=== PATIENT | male | born 1975 | race African-American/Black ===

== ENCOUNTER 2021-11-28 13:47 | Emergency (ER) | payer OTHER, SELFPAY ==
--- NOTE | 2021-11-28 14:08 | ED_ITS ---
HPI - Psych General Chief Complaint: Psychiatric Symptoms <Denise Buck NP - Last Filed: 11/28/21 20:24> Stated Complaint: SI/HI, NOT SAFE, NOT TAKING MEDS <Denise Buck NP - Last Filed: 11/28/21 20:24> Time Seen by Provider: 11/28/21 13:56 <Denise Buck NP - Last Filed: 11/28/21 20:24> Source: patient and EMS <Denise Buck NP - Last Filed: 11/28/21 20:24> Mode of arrival: EMS <Denise Buck NP - Last Filed: 11/28/21 20:24> Limitations: no limitations <JOVANNY Rahman Last Filed: 11/28/21 20:24> History of Present Illness HPI Narrative: 46 yo male with history of schizoaffective disorder, depression here with complaints of feeling suicidal with plan to run into traffic since September. No HI, hallucinations. Smoked some crack and drank alcohol on Monday but tells me he only does this intermittently. He tells me he was [place] [facility] [place] with ?h.pylori and is on amoxicillin and clarithromycin which he tells me he has been compliant with this and prn oxycodone. While he was in [facility] [place] tells me they discontinued his depakote and increased his seroquel which he feels is making things worse. <Denise Buck NP - Last Filed: 11/28/21 20:24> Related Data Allergies/Adverse Reactions: Allergies Allergy/AdvReac Type Severity Reaction Status Date / Time aspirin Allergy Unknown Verified 11/28/21 14:08 hydromorphone [From Dilaudid] Allergy Hives Verified 11/28/21 14:08 morphine Allergy Hives Verified 11/28/21 14:08 tramadol Allergy Unknown Verified 11/28/21 14:09 <Denise Buck NP - Last Filed: 11/28/21 20:24> Review of Systems Review of Systems: Yes all other systems are reviewed and are negative <JOVANNY Rahman Last Filed: 11/28/21 20:24> Constitutional: Constitutional: Reports no additional constitutional complaints, Denies body ache(s), Denies chills, Denies fever(s), Denies headache(s) and Denies weakness <Denise Buck NP - Last Filed: 11/28/21 20:24> Eyes: Eyes: Reports no additional eye complaints and Denies change in vision <Denise Buck NP - Last Filed: 11/28/21 20:24> ENT: Reports system reviewed and no additional complaints, except as documented, Denies dizziness, Denies headache(s), Denies nasal congestion, Denies nasal discharge and Denies neck pain <Denise Buck NP - Last Filed: 11/28/21 20:24> Cardiovascular: Cardiovascular: Reports no additional cardiovascular complaints, Denies chest pain, Denies leg edema and Denies dyspnea <Denise Buck NP - Last Filed: 11/28/21 20:24> Respiratory: Respiratory: Reports no additional respiratory complaints, Denies cough and Denies dyspnea <Denise Buck NP - Last Filed: 11/28/21 20:24> Gastrointestinal: Gastrointestinal: Reports no additional gastrointestinal complaints, Denies abdominal pain, Denies diarrhea, Denies nausea and Denies vomiting <Denise Buck NP - Last Filed: 11/28/21 20:24> Genitourinary: Genitourinary: Denies urinary incontinence <Denise Buck NP - Last Filed: 11/28/21 20:24> Musculoskeletal: Musculoskeletal: Reports no additional musculoskeletal complaints, Denies back pain, Denies arthralgias, Denies joint swelling, Denies neck pain, Denies numbness and Denies tingling <Denise Buck NP - Last Filed: 11/28/21 20:24> Integumentary/Breasts: Skin/Breast: Reports system reviewed and no additional complaints, except as docu and Denies rash <Denise Buck NP - Last Filed: 11/28/21 20:24> Neurologic: Reports system reviewed and no additional complaints, except as documented, Denies Abnormal speech present, Denies dizziness, Denies headache(s), Denies numbness, Denies tingling and Denies weakness <Denise Buck NP - Last Filed: 11/28/21 20:24> Psychiatric: Psychiatric: Denies homicidal ideation and Reports suicidal ideation <Denise Buck NP - Last Filed: 11/28/21 20:24> [facility] Past Medical History Attestation statement: The following information was validated with the patient. <Denise Buck NP - Last Filed: 11/28/21 20:24> Source: old records reviewed and nursing notes reviewed <Denise Buck NP - Last Filed: 11/28/21 20:24> Medical History: Medical History Depression GERD (gastroesophageal reflux disease) <Denise Buck NP - Last Filed: 11/28/21 20:24> Social History Social History: Social History Substance Use Type: Crack/Cocaine Advance Directives: No Advance Directives Information Provided: No <Denise Buck NP - Last Filed: 11/28/21 20:24> Physical Exam Vital Signs: Vital Signs: Last Vital Signs Temp 98.2 F 11/28/21 14:14 Pulse 86 11/28/21 14:14 Resp 18 11/28/21 14:14 BP 109/67 11/28/21 14:14 Pulse Ox 97 11/28/21 14:14 BMI result Body Mass Index 23.7 <Denise Buck NP - Last Filed: 11/28/21 20:24> Const: General: cooperative, healthy appearing, comfortable and no acute distress <Denise Buck NP - Last Filed: 11/28/21 20:24> Orientation/consciousness: patient oriented x3 <Denise Buck NP - Last Filed: 11/28/21 20:24> Limitations: no limitations <Denise Buck NP - Last Filed: 11/28/21 20:24> HEENT: Head: Yes normal to inspection <Denise Buck NP - Last Filed: 11/28/21 20:24> Ears: hearing grossly normal bilaterally <Denise Buck NP - Last Filed: 11/28/21 20:24> General nose exam: Normal external nose present <Denise Buck NP - Last Filed: 11/28/21 20:24> Face and sinus: Yes normal facial exam <Denise Buck NP - Last Filed: 11/28/21 20:24> Mouth: Normal oral and palatal mucosa present <Denise Buck NP - Last Filed: 11/28/21 20:24> Throat: Yes posterior oropharynx normal <Denise Buck NP - Last Filed: 11/28/21 20:24> Eyes: General: appearance normal, both eyes and all related structures <Denise Buck NP - Last Filed: 11/28/21 20:24> Pupils: Equal, round and reactive pupils present <Denise Buck NP - Last Filed: 11/28/21 20:24> Neck: Neck: Yes normal visual inspection and Yes full ROM <Denise Buck NP - Last Filed: 11/28/21 20:24> Chest: Chest palpation & inspection: normal inspection of the chest <Denise Buck NP - Last Filed: 11/28/21 20:24> Resp: Effort & Inspection: normal respiratory effort <Denise Buck NP - Last Filed: 11/28/21 20:24> Auscultation: clear to auscultation bilaterally <Denise Buck NP - Last Filed: 11/28/21 20:24> Cardio: Rate: regular rate <Denise Buck NP - Last Filed: 11/28/21 20:24> Rhythm: regular rhythm <Denise Buck NP - Last Filed: 11/28/21 20:24> Peripheral pulses: Peripheral pulses 2+ throughout <Denise Buck NP - Last Filed: 11/28/21 20:24> GI: Inspection: Yes normal to inspection <Denise Buck NP - Last Filed: 11/28/21 20:24> Palpation (GI): Soft to palpation and nontender <Denise Buck NP - Last Filed: 11/28/21 20:24> Auscultation: normal bowel sounds <Denise Bukc NP - Last Filed: 11/28/21 20:24> Back/Spine/Pelvis: Thoracic/Lumbar Spine: thoracic and lumbar spine normal to inspection <Denise Buck NP - Last Filed: 11/28/21 20:24> Skin: General skin exam: no rashes or lesions noted <Denise Buck NP - Last Filed: 11/28/21 20:24> Neuro: General: patient oriented x3, no focal motor deficits and normal sensation to monofilament <Denise Buck NP - Last Filed: 11/28/21 20:24> Cranial nerves: Yes CN's II-XII intact bilaterally and Yes Equal, round and reactive pupils present <Denise Buck NP - Last Filed: 11/28/21 20:24> Cognition (Neuro): normal cognition <Denise Buck NP - Last Filed: 11/28/21 20:24> Speech: No Abnormal speech present <Denise Buck NP - Last Filed: 11/28/21 20:24> Gait exam (Neuro): Normal gait present <Denise Buck NP - Last Filed: 11/28/21 20:24> Motor exam (neuro): 5/5 motor strength present throughout <Denise Buck NP - Last Filed: 11/28/21 20:24> Extrem: General: Yes normal to inspection <Denise Buck NP - Last Filed: 11/28/21 20:24> Course Course Course Narrative: 46 yo male here with SI, w/ recent med changes. Will check labs, NOVOA, COVID screen. No concern for acute ingestion or trauma. <Denise Buck NP - Last Filed: 11/28/21 20:24> Reevaluation(s) Reevaluation #1: At living room. Seen by N with plan to f/u with outpatient providers. Has appt tomorrow with psychiatrist. <Denise Buck NP - Last Filed: 11/28/21 20:24> Time: 14:25 <Denise Buck NP - Last Filed: 11/28/21 20:24> Reevaluation #2: Patient was seen by crisis. The plan is tomorrow morning he is going [facility] by a 08:00 and will need transportation there. The plan is for him to me his [facility] worker to see a psychiatrist tomorrow. He will be held in the emergency room until then <Denise Buck NP - Last Fi led: 11/28/21 20:24> Time: 20:00 <Denise Buck NP - Last Filed: 11/28/21 20:24> MDM - Psych Medical Records Attestation: I reviewed the patient's medical records. <Denise Buck NP - Last Filed: 11/28/21 20:24> Lab Data Attestation: I reviewed the patient's lab results. <Denise Buck NP - Last Filed: 11/28/21 20:24> Result diagrams: : 11/28/21 14:41 11/28/21 14:41 <Denise Buck NP - Last Filed: 11/28/21 20:24> Labs: Lab Results 11/28/21 11/28/21 11/28/21 Range/Units 14:41 14:41 14:41 WBC 9.0 (4.8-10.8) X10*3/uL RBC 3.85 L (4.60-5.80) X10*6/uL Hgb 12.4 L (14.0-18.0) g/dl Hct 38.2 L (42.0-52.0) % MCV 99.2 H (80.0-98.0) fL MCH 32.2 (27.0-33.0) pg MCHC 32.5 (31.0-36.0) g/dl RDW 15.3 (11.0-16.0) % Plt Count 266 (160-400) X10*3/uL MPV 9.9 (9.4-12.4) fL Immature Gran % (Auto) 0.2 (0.0-0.4) % Neut % (Auto) 57.3 (45-73) % Lymph % (Auto) 28.4 (20-40) % Blair % (Auto) 9.6 (2-11) % Eos % (Auto) 4.2 H (0-4) % Baso % (Auto) 0.3 (0-2) % Lymph # (Auto) 2.6 (1.2-4.9) X10*3/uL Blair # (Auto) 0.9 (0.1-1.2) X10*3/uL Eos # (Auto) 0.4 (0.0-0.4) X10*3/uL Baso # (Auto) 0.0 (0.0-0.2) X10*3/uL Abs Immat Gran (auto) 0.02 (0.00-0.03) X10*3/uL Absolute Neuts (auto) 5.2 (2.0-8.3) x10*3/uL Absolute Nucleated RBC 0.000 (0.0-0.012) X10*3/uL Nucleated RBC % (auto) 0.0 (0.0-0.2) /100WBC Sodium 139 (135-145) mmol/L Potassium 4.8 (3.3-5.1) mmol/L Chloride 109 H (96-108) mmol/L Carbon Dioxide 21 L (22-29) mmol/L Anion Gap 14 (12-20) BUN 16 (9-16) mg/dL Creatinine 0.71 (0.5-1.4) mg/dL Estim Creat Clear Calc 134.2 Estimated GFR > 60 Random Glucose 78 (60-115) mg/dL Calcium 9.2 (8.4-10.2) mg/dL Total Bilirubin 0.2 (0.0-1.0) mg/dL Direct Bilirubin < 0.2 (0.0-0.5) mg/dL AST 62 H (5-37) U/L ALT 111 H (0-40) U/L Alkaline Phosphatase 68 (39-117) U/L Total Protein 7.5 (6.5-8.0) g/dL Albumin 4.1 (3.5-5.0) g/dL Urine Opiates Screen (Not Detect) Urine Fentanyl Screen (Not Detect) Ur Barbiturates Screen (Not Detect) Ur Phencyclidine Scrn (Not Detect) Ur Amphetamines Screen (Not Detect) U Benzodiazepines Scrn (Not Detect) Urine Cocaine Screen (Not Detect) U Marijuana (THC) Screen (Not Detect) Ethyl Alcohol mg/dL COVID-19 ([facility]) Negative (Negative) COVID-19 Clin Com See Note 11/28/21 11/28/21 Range/Units 14:41 14:43 WBC (4.8-10.8) X10*3/uL RBC (4.60-5.80) X10*6/uL Hgb (14.0-18.0) g/dl Hct (42.0-52.0) % MCV (80.0-98.0) fL MCH (27.0-33.0) pg MCHC (31.0-36.0) g/dl RDW (11.0-16.0) % Plt Count (160-400) X10*3/uL MPV (9.4-12.4) fL Immature Gran % (Auto) (0.0-0.4) % Neut % (Auto) (45-73) % Lymph % (Auto) (20-40) % Blair % (Auto) (2-11) % Eos % (Auto) (0-4) % Baso % (Auto) (0-2) % Lymph # (Auto) (1.2-4.9) X10*3/uL Blair # (Auto) (0.1-1.2) X10*3/uL Eos # (Auto) (0.0-0.4) X10*3/uL Baso # (Auto) (0.0-0.2) X10*3/uL Abs Immat Gran (auto) (0.00-0.03) X10*3/uL Absolute Neuts (auto) (2.0-8.3) x10*3/uL Absolute Nucleated RBC (0.0-0.012) X10*3/uL Nucleated RBC % (auto) (0.0-0.2) /100WBC Sodium (135-145) mmol/L Potassium (3.3-5.1) mmol/L Chloride (96-108) mmol/L Carbon Dioxide (22-29) mmol/L Anion Gap (12-20) BUN (9-16) mg/dL Creatinine (0.5-1.4) mg/dL Estim Creat Clear Calc Estimated GFR Random Glucose (60-115) mg/dL Calcium (8.4-10.2) mg/dL Total Bilirubin (0.0-1.0) mg/dL Direct Bilirubin (0.0-0.5) mg/dL AST (5-37) U/L ALT (0-40) U/L Alkaline Phosphatase (39-117) U/L Total Protein (6.5-8.0) g/dL Albumin (3.5-5.0) g/dL Urine Opiates Screen Not Detected (Not Detect) Urine Fentanyl Screen POSITIVE H (Not Detect) Ur Barbiturates Screen Not Detected (Not Detect) Ur Phencyclidine Scrn Not Detected (Not Detect) Ur Amphetamines Screen Not Detected (Not Detect) U Benzodiazepines Scrn Not Detected (Not Detect) Urine Cocaine Screen POSITIVE H (Not Detect) U Marijuana (THC) Screen Not Detected (Not Detect) Ethyl Alcohol 41 mg/dL COVID-19 ([facility]) (Negative) COVID-19 Clin Com <Denise Buck NP - Last Filed: 11/28/21 20:24> Discharge Plan Discharge Clinical Impression: Schizoaffective disorder <Denise Buck NP - Last Filed: 11/28/21 20:24> Patient Disposition: Still a Patient <Denise Buck NP - Last Filed: 11/28/21 20:24>
[2021-11-28 14:14] VITALS: BP 109/67; BP 130/80; PULSE 86; RESP 18; TEMP 36.8; O2SAT 96; O2SAT 97; BMI 23.7
[2021-11-28 14:50] LABS: MANUAL DIFF FLAG NO
[2021-11-28 14:51] LABS: Basophils Percent Auto 0.3 % (0-2); Eosinophils Absolute Auto 0.4 X10*3/uL (0.0-0.4); Eosinophils Percent Auto 4.2 % (0-4); Hematocrit 38.2 % (42.0-52.0); Hemoglobin 12.4 g/dl (14.0-18.0); Imm Gran Abs Auto 0.02 X10*3/uL (0.00-0.03); Imm Gran Pct Auto 0.2 % (0.0-0.4); Lymphocytes Absolute Auto 2.6 X10*3/uL (1.2-4.9); Lymphocytes Percent Auto 28.4 % (20-40); Mean Corpuscular HGB Conc 32.5 g/dl (31.0-36.0); Mean Corpuscular Hemoglobin 32.2 pg (27.0-33.0); Mean Corpuscular Volume 99.2 fL (80.0-98.0); Mean Platelet Volume 9.9 fL (9.4-12.4); Monocytes Absolute Auto 0.9 X10*3/uL (0.1-1.2); Monocytes Percent Auto 9.6 % (2-11); Neutrophils Absolute Auto 5.2 x10*3/uL (2.0-8.3); Neutrophils Percent Auto 57.3 % (45-73); Platelet Count 266 X10*3/uL (160-400); Red Blood Count 3.85 X10*6/uL (4.60-5.80); Red Cell Distribution Width 15.3 % (11.0-16.0)
[2021-11-28 15:08] LABS: Ethanol 41 mg/dL
[2021-11-28 15:11] LABS: Amphetamine Screen Urine Not Detected (Not Detect); Barbiturates, Urine Not Detected (Not Detect); Benzodiazepines Screen Urine Not Detected (Not Detect); Cannabinoid Screen Urine Not Detected (Not Detect); Cocaine Screen Urine POSITIVE (Not Detect); Fentanyl, urine POSITIVE (Not Detect); Opiate Screen Urine Not Detected (Not Detect); Phencyclidine Screen Urine Not Detected (Not Detect)
[2021-11-28 15:12] LABS: COVID-19 Test Negative (Negative); IDNOW Serial# 16C4AD1C
[2021-11-28 15:31] LABS: Alanine Aminotransferase 111 U/L (0-40); Albumin Level 4.1 g/dL (3.5-5.0); Alkaline Phosphatase 68 U/L (39-117); Anion Gap 14 (12-20); Aspartate Amino Transferase 62 U/L (5-37); Bilirubin Direct < 0.2 mg/dL (0.0-0.5); Bilirubin Total 0.2 mg/dL (0.0-1.0); Blood Urea Nitrogen 16 mg/dL (9-16); Calcium 9.2 mg/dL (8.4-10.2); Carbon Dioxide 21 mmol/L (22-29); Chloride 109 mmol/L (96-108); Creatinine Clr Calc Pharmacy 134.2; Estimated Glomerular Filt Rate > 60; Glucose Random 78 mg/dL (60-115); Potassium 4.8 mmol/L (3.3-5.1); Sodium 139 mmol/L (135-145); Total Protein 7.5 g/dL (6.5-8.0)
[2021-11-28 21:23] VITALS: BP 125/73; PULSE 89; RESP 18; TEMP 36.8; O2SAT 98
[2021-11-28] MEDS: Omeprazole 20 MG CAPSULE.DR PO (21:50)
[2021-11-28] MEDS: Amoxicillin 500 MG CAPSULE 1000 MG PO (21:50)
[2021-11-28] MEDS: QUEtiapine Fumarate 300 MG TABLET PO (21:50)
[2021-11-28] MEDS: traZODone HCL 100 MG TABLET PO (21:54)
[2021-11-28] MEDS: oxyCODONE HCl Immed Release 5 MG TABLET PO (21:54)
[2021-11-29 02:57] VITALS: BP 122/70; PULSE 91; RESP 16; TEMP 36.8; O2SAT 97
--- NOTE | 2021-11-29 05:41 | PC.NURSE ---
Patient slept through the night, no distress observed/reported, medication compliant, disposition per [facility] is d/c home, psychiatrist appointment at 0800 am in [place], care team to coordinate the ride, behavior non concerning, VSS, will continue to monitor.
--- NOTE | 2021-11-29 06:09 | PC.NURSE ---
patient appears to remain asleep[ at present respirations are even and [id number] patient appears in no distress
[2021-11-29] MEDS: Amoxicillin 500 MG CAPSULE 1000 MG PO (07:13)
[2021-11-29] MEDS: Omeprazole 20 MG CAPSULE.DR PO (07:13)
== END 2021-11-29 08:03 | disposition home or self-care (01) ==
PROVIDERS: Nurse Practitioner Family; Emergency Provider Emergency Medicine
DX: F33.1 Major depressive disorder, recurrent, moderate (principal); R45.851 Suicidal ideations; F14.10 Cocaine abuse, uncomplicated; F25.9 Schizoaffective disorder, unspecified; Z20.822 Contact with and (suspected) exposure to COVID-19; Z79.899 Other long term (current) drug therapy
CPT/HCPCS: 36415; 80048; 80076; 80307; 82077; 85025; 87635; 99284

== ENCOUNTER 2021-12-05 17:34 | Emergency (ER) | payer OTHER, SELFPAY ==
--- NOTE | ~2021-12-05 | XR_ITS ---
EXAMINATION: XR KNEE, LEFT CLINICAL INFORMATION: Left knee pain COMPARISON: None TECHNIQUE: Four views of the left knee. FINDINGS: Bones and soft tissues are normal. No fracture or joint effusion. Alignment is anatomic. Joint spaces are well maintained. No abnormal soft tissue calcification. XR/XR knee LT 4V IMPRESSION: Normal left knee.
[2021-12-05 18:04] VITALS: BP 120/70; BP 131/80; PULSE 70; PULSE 71; RESP 16; TEMP 36.9; O2SAT 96; O2SAT 98; BMI 23.6
--- NOTE | 2021-12-05 18:15 | PC.NURSE ---
SPOKE WITH CHARGE NURSE KYLE ABOUT SECTION 12. PT NOT SI. NO SITTER NEEDED PER CHARGE NURSE.
--- NOTE | 2021-12-05 18:47 | PC.NURSE ---
AMB TO RAD WITH STEADY GAIT.
--- NOTE | 2021-12-05 19:49 | ED_ITS ---
HPI - Extremity Injury (Lower) General Chief Complaint: Extremity Injury, Lower Stated Complaint: left knee pain Time Seen by Provider: 12/05/21 18:36 Source: patient and EMS Mode of arrival: EMS Limitations: no limitations History of Present Illness HPI Narrative: This is a 46-year-old male presenting to the emergency department with atraumatic left knee pain. According to patient he was sitting at [employer] [employer] here he is currently staying eating when he suddenly felt like his left knee started hurting, he tells me he felt like it popped out then popped back into place. He reports numbness from the knee down on the left. And he reports tingling down bilateral legs and up to his head. Patient is laying in a lucy- cross position knee bent. He tells me sometimes when he tries to straighten his leg out his knee automatically bends. He reports pain is worse w/ movement. No evidence signs of trauma or distracting injuries. MD complaint: knee injury Onset (ago): day(s) (1) Place: other Severity: severe Relieving factors: nothing Exacerbating factors: nothing Associated symptoms: snap/pop sensation Other symptoms: none Related Data Home Medications Medication Instructions Recorded Confirmed acetaminophen 325 mg tablet 2 tab PO Q4H PRN 11/28/21 11/28/21 amoxicillin 500 mg capsule 1,000 mg PO BID 11/28/21 11/28/21 clarithromycin 500 mg tablet 500 mg PO BID 11/28/21 11/28/21 oxycodone 5 mg tablet 5 mg PO BID PRN 11/28/21 11/28/21 quetiapine 300 mg tablet 1 tab PO BEDTIME 11/28/21 11/28/21 trazodone 100 mg tablet 1 tab PO BEDTIME PRN 11/28/21 11/28/21 Allergies Allergy/AdvReac Type Severity Reaction Status Date / Time aspirin Allergy Unknown Verified 11/28/21 14:08 hydromorphone [From Dilaudid] Allergy Hives Verified 11/28/21 14:08 morphine Allergy Hives Verified 11/28/21 14:08 tramadol Allergy Unknown Verified 11/28/21 14:09 egg AdvReac Stomach Verified 11/29/21 07:10 Upset Review of Systems Review of Systems: Constitutional : No Weight loss, No Fever, No Chills, No Fatigue, No Malaise ENT/Mouth : No sore throat, No Rhinorrhea Eyes: No Eye Pain, No Swelling, No Redness Cardiovascular : No Chest Pain, No SOB, No Dyspnea on Exertion, No Orthopnea, No Edema, No Palpitations Respiratory : No Cough, No Sputum, No Wheezing Gastrointestinal : No Nausea, No Vomiting, No Diarrhea, No Constipation, No abdominal Pain, No Hematochezia, No Melena Genitourinary : No Dysuria, No Urinary Frequency, No Hematuria, Musculoskeletal : + joint pain, No Myalgias, No Joint Swelling Skin : No Skin Lesions, No rash Neuro : No Weakness, No Numbness, No Dizziness, No Headache All other systems reviewed and are negative Yes all other systems are reviewed and are negative [facility] Past Medical History Medical History Depression GERD (gastroesophageal reflux disease) Social History Social History Substance Use Type: Crack/Cocaine Advance Directives: No Advance Directives Information Provided: No Physical Exam Vital Signs: Vital Signs: Last Vital Signs Temp 98.4 F 12/05/21 18:04 Pulse 71 12/05/21 18:04 Resp 16 12/05/21 18:04 BP 131/80 12/05/21 18:04 Pulse Ox 98 12/05/21 18:04 BMI result Body Mass Index 23.6 Vital signs stable Appearance: Alert.? Oriented X3.? No acute distress.? Head: Normocephalic, atraumatic, no step-offs or deformities Eyes: Pupils equal, round and reactive to light.? ENT: Pharynx normal.? Neck: Normal inspection.? Neck supple.? CVS: Normal heart rate and rhythm.? Pulses normal.? Respiratory: No respiratory distress.? Breath sounds normal.? Abdomen: Soft and nontender.? Skin: Skin warm and dry.? Normal skin color.? Normal skin turgor.? Extremities: No lower extremity edema.? No calf ttp. 5/5 strength to bilateral upper and lower extremities full range of motion to bilateral knees. 2+ patellar reflexes, 2 plus pulses equal bilateral to the patella, negative valgus and Varus, negative anterior and posterior drawer. No distracting injuries. Back: No midline tenderness, no C-spine tenderness, full range of motion, no CVA tenderness bilaterally Neuro: Oriented X 3.? No motor deficit.? No sensory deficit. CN 2-12 intact Course Reevaluation(s) Reevaluation #1: Patient told nurse that he feels much better. He is ambulating, he would like an Eliseo wrap for his knee. He is comfortable at this time. Denies numbness and tingling. At this time he will be discharged to [facility] with follow-up with ortho. Time: 21:04 Reevaluation #2: X-ray of the left knee normal. Patient ambulating well feeling better. Comfortable w. dc Reevaluation #3: Patient now tells me his knee is hurting again. Will give him morphine which he has tolerated well with benadryl for pain and he will be discharged to [facility] advised him likely requires an MRI to rule out ligament and tendon involvement. Comfortable with discharge Time: 21:26 MDM - Extremity Injury (Lower) MDM Narrative Medical decision making narrative: 1900 46 yo m presents with atraumatic left knee pain. He reports numbness and tingling. Physical examination benign. Patient ambulating with steady gait. Neuro nonfocal. Regular rate and rhythm lungs clear. I do not suspect gout or pseudogout as there is no erythema or warmth, no pain with range of motion on my exam. Negative anterior and posterior drawer unlikely ACL or PCL. Unlikely meniscus. I do not suspect fracture dislocation. Likely knee sprain/strain. Plan at this time is imaging. Medical Records Attestation: I reviewed the patient's medical records. Lab Data Attestation: I reviewed the patient's lab results. Critical Care Time Critical Care Time Critical Care Time: No Discharge Plan Discharge Clinical Impression: Knee pain, left Patient Disposition: Xfer Other Transfer Details: [facility] Instructions: Knee Pain (ED) Additional Instructions: Take your medications as prescribed. If you were prescribed antibiotics today, it is important that you take your medication to their entirety, do not skip any doses, do not finish them early. Follow-up with your primary care provider this week. Follow-up with orthopedics if symptoms do not resolve within a week. You may require an MRI to look at ligaments or tendons as I am not able to rule this out by my exam. Return to the emergency department with new or worsening symptoms. Such as fevers, chills, chest pain, shortness of breath, nausea, vomiting, dizziness, h eadache, vision changes, lethargy, numbness or tingling You can take ibuprofen every 6 hours, Tylenol every 4 as needed. You can apply the Eliseo wrap for comfort, please do not rapid too tight and do not sleep with this on. In case of emergency call 911 FINDINGS: Bones and soft tissues are normal. No fracture or joint effusion. Alignment is anatomic. Joint spaces are well maintained. No abnormal soft tissue calcification.? XR/XR knee LT 4V IMPRESSION: Normal left knee. ? Prescriptions: No Action amoxicillin 500 mg Capsule 1,000 mg PO BID 0RF clarithromycin 500 mg Tablet 500 mg PO BID 0RF quetiapine 300 mg tablet 1 tab PO BEDTIME 0RF trazodone 100 mg tablet 1 tab PO BEDTIME PRN (Reason: Insomnia) 0RF acetaminophen 325 mg tablet 2 tab PO Q4H PRN (Reason: pain) 0RF oxycodone 5 mg Tablet 5 mg PO BID PRN (Reason: Moderate Pain (Scale Score 5-6)) 0RF Referrals: Physician,Unknown J [Primary Care Provider] - 2 weeks [facility] [Provider Group] Stand Alone Forms: Work/School Release
--- NOTE | 2021-12-05 20:02 | PC.NURSE ---
patient was able to ambulate 20 feet in the hallway only complaint was pressure on bearing down on left knee . tolerated well . feels like he would be able to walk better with support such as a brace or beata bandage on that knee .
[2021-12-05] MEDS: diphenhydrAMINE HCL 25 MG TABLET PO (21:33)
[2021-12-05] MEDS: Morphine Sulfate Immed Release 15 MG TABLET PO (21:33)
== END 2021-12-05 22:23 | disposition other institution (70) ==
PROVIDERS: Emergency Provider Emergency Medicine Emergency Medical Services
DX: M25.562 Pain in left knee (principal)
CPT/HCPCS: 73564; 99283; Q0163